=== PATIENT | male | born 1990 | race Caucasian/White ===

== ENCOUNTER 2025-10-04 10:22 | Emergency (ER) | payer MEDICARE, MEDICAID, SELFPAY ==
[2025-10-04 10:31] VITALS: PULSE 90; RESP 16; O2SAT 97
[2025-10-04 10:42] VITALS: BP 141/90; PULSE 78; RESP 17; TEMP 37.1; O2SAT 98
[2025-10-04] MEDS: HYDROcodone/APAP 5/325 TABLET 1 TAB PO (11:08)
[2025-10-04] MEDS: KETOROLAC INJ 30 MG/ML VIAL IM (11:09)
[2025-10-04 13:40] VITALS: BP 147/96; PULSE 67; RESP 19; TEMP 37.1; O2SAT 96
--- NOTE | 2025-10-04 13:51 | EDNOTE_ITS ---
<Statement entered by Venus Luna MD - 10/04/25 16:24> As co-signing physician, I was present and available for consult prn. I concur with the plan and care as documented by the midlevel provider. ED General RME/HPI General Chief complaint: Extremity Problem,Nontraumatic Stated complaint: LOWER LEG CRAMPING Time Seen by Provider: 10/04/25 10:58 Arrival date/time: 10/04/25 10:22 No CC: Right ankle spasm. The patient has cerebral palsy, and has a spasm in his right ankle that is been persistent since early this morning. Patient has had these intermittently, usually they go away on their own after an hour or so but today this 1 has persisted. The patient admits he has stopped drinking alcohol 5 to 6 months ago and is feeling much better. Patient denies any other complications localized ankle pain is 3-4 on a 10 scale. Related Data Allergies Allergy/AdvReac Type Severity Reaction Status Date / Time No Known Allergies Allergy Verified 10/04/25 10:34 Review of Systems Review of Systems Narrative Review of Systems: [General: In mild discomfort but not in any acute distress Head normocephalic HEENT: Eyes: Disconjugate gaze, pupils are PERRLA all other subsystems of HEENT are within acceptable limits Neck is supple nontender Chest equal chest rise nontender to palpation Respiratory: Clear to auscultation no wheezes crackles or rubs CV: Rate rhythm is regular no murmurs rubs or clicks Abdomen is distended secondary to body habitus soft nontender no masses positive bowel sounds all 4 quadrants Back: No CVA tenderness no spinous process tenderness from cervical spine thoracic and lumbar spine Skin: Intact no petechiae rash induration ulceration or crepitus Extremities: Right ankle: Persistent extension of the foot, not relieved with counterpressure. Moving all extremities spasmodically, baseline, cap refill less than 2 seconds neurosensory intact Neuro: Awake alert oriented x3 Glascow coma 15 no focal deficits] Past Medical History Past Medical History NEUROLOGIC: Positive Neurological Disorders (scoliosis) and Cerebral Palsy CARDIAC: Negative Cardiac Disorders or Congestive Heart Failure RESPIRATORY: Positive Asthma; Negative Chronic Obstructive Pulmonary Disease (COPD) GENITOURINARY: Negative Renal Disease ENDOCRINE: Negative Endocrine Disorders, Diabetes Mellitus Type 1 or Diabetes Mellitus Type 2 PSYCHO/SOCIAL: Positive Depression and Anxiety OTHER HISTORY: Negative Cancer Social History SMOKING STATUS: Light (< 1 pack/day) ED Exam Narrative Physical exam: [General Not in any acute distress Head normocephalic HEENT: Within acceptable limits Neck is supple nontender Chest equal chest rise nontender to palpation Respiratory: Clear to auscultation no wheezes crackles or rubs CV: Rate rhythm is regular no murmurs rubs or clicks Abdomen is soft nontender no masses positive bowel sounds all 4 quadrants Back: No CVA tenderness no spinous process tenderness from cervical spine thoracic and lumbar spine Skin: Intact no petechiae rash induration ulceration or crepitus Extremities: Spasmatic right ankle cap refill less than 2 seconds moving all extremities against resistance cap refill less than 2 seconds neurosensory intact Neuro: Awake alert oriented x3 Glascow coma 15 no focal deficits] Course Course Course Narrative: After 1 baclofen tablet, the patient states it is easing up he wants to be discharged home, will discharge the patient home with ankle spasm Quality Measures none Orders Category Date Time Status Baclofen [Lioresal] Med 10/04/25 13:56 Discontinued 20 mg PO X1 ONE HYDROcodone*/APAP 5/325 [[place] 5/325] Med 10/04/25 11:00 Discontinued 1 tab PO X1 ONE Ketorolac Inj [Toradol Inj] Med 10/04/25 11:00 Discontinued 30 mg IM X1 ONE LORazepam [Ativan] Med 10/04/25 13:50 Discontinued 1 mg PO X1 ONE Vital Signs Vital signs: Vital Signs Temperature 98.8 F 10/04/25 10:42 Pulse Rate 78 10/04/25 10:42 Respiratory Rate 17 10/04/25 10:42 Blood Pressure 141/90 H 10/04/25 10:42 Pulse Oximetry (%) 98 10/04/25 10:42 Oxygen Delivery Method Room Air 10/04/25 10:42 Discharge Plan Plan Patient Disposition: HOME (Self Care) Patient condition on transfer: Stable Prescriptions/Referrals Referrals: Vadim Borges MD [Primary Care Provider, Family Practice] - In 1 week Problem List Clinical Impression: Leg muscle spasm Patient/Caregiver Discharge Instructions Education Materials: ED Muscle Spasm Print Language: Lao Stand Alone Forms: Laura Award Info., Patient Portal Info Letter PA/[employer] Supervising Physician PA/[employer] Supervising Physician: Benedicto Pate ENP MDM Clinical Information Provided by: patient Medical Records reviewed [facility] Meds/Rx considered, not ordered None Labs/Rad/Tests considered, not ordered None Chronic Illness/Social Conditions Explain: Cerebral palsy EKG EKG not done Labs Labs: none Imaging Imaging interpretation: none Medication Administration(s) Medication Administration History Discontinued Medications Hydrocodone Bitart/Acetaminophen (Hydrocodone/Apap 5/325 Tablet) 1 tab PO X1 ONE Stop: 10/04/25 11:01 Last Admin: 10/04/25 11:08 Dose: 1 tab Documented By: DANIELA Baclofen (Baclofen 10 Mg Tablet) 20 mg PO X1 ONE Stop: 10/04/25 13:57 Last Admin: 10/04/25 14:01 Dose: 20 mg Documented By: KENNEDY Ketorolac Tromethamine (Ketorolac Inj 30 Mg/Ml Vial) 30 mg IM X1 ONE Stop: 10/04/25 11:01 Last Admin: 10/04/25 11:09 Dose: 30 mg Documented By: DANIELA Lorazepam (Lorazepam 0.5 Mg Tablet) 1 mg PO X1 ONE Stop: 10/04/25 13:51 Last Admin: 10/04/25 13:58 Dose: 1 mg Documented By: KENNEDY
[2025-10-04] MEDS: BACLOFEN 10 MG TABLET 20 MG PO (14:01)
[2025-10-04 14:27] VITALS: BP 148/95; PULSE 70; RESP 18; TEMP 37.3; O2SAT 95
[2025-10-04 14:52] VITALS: BP 160/92; PULSE 75; RESP 18; O2SAT 95
== END 2025-10-04 14:54 | disposition home or self-care (01) ==
PROVIDERS: Emergency Provider Emergency Medicine; PCP Family Medicine
DX: M62.838 Other muscle spasm (principal); G80.9 Cerebral palsy, unspecified
CPT/HCPCS: 96372; 99282; J1885; A9270